=== PATIENT | female | born 1965 | race Caucasian/White ===

== ENCOUNTER 2019-01-16 10:58 | Emergency (ER) | payer OTHER ==
[2019-01-16 11:24] VITALS: BP 125/82
[2019-01-16] MEDS ORDERED: Ondansetron ODT TAB* 4 MG PO ONE (11:37)
--- NOTE | 2019-01-16 11:43 | UC ---
UC General HPI - HPI Summary HPI Summary: 53-year-old female comes in with a chief complaint of nausea vomiting chills body aches and feeling ill. Patient believes it's due to an insect bite. 3 days ago the patient felt well. She then felt something bite her on her back. 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 She was unable to look at it to determine if there was a tick. Since that time she started feeling ill with the above symptoms. Today she's been vomiting. She also feels lightheaded. She is allergic to acetaminophen. She has not taken any ibuprofen. 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 She is not allergic to ibuprofen. She reports she has not been on Xarelto for 2 months. - History of Current Complaint Chief Complaint: UCBiteInjury Stated Complaint: INSECT BITE Time Seen by Provider: 01/16/19 11:29 Pain Intensity: 7 - Allergy/Home Medications Allergies/Adverse Reactions: Allergies Allergy/AdvReac Type Severity Reaction Status Date / Time acetaminophen [From Tylenol] Allergy See Comment Verified 01/16/19 11:28 aspirin Allergy See Comment Verified 01/16/19 11:28 codeine Allergy Nausea And Verified 01/16/19 11:28 Vomiting ibuprofen [From Motrin] Allergy GI Upset Verified 01/16/19 11:28 morphine Allergy Diarrhea Verified 01/16/19 11:28 PMH/Surg Hx/FS Hx/Imm Hx Previously Healthy: Yes - LIVER CLOT Other History Of: Anticoagulant Therapy - COUMADIN - Surgical History Surgical History: Yes Surgery Procedure, Year, and Place: 1981,1983,1984 [facility], [facility], [facility] [place]. 1997 partial hysterectomy [facility] [place]. 4 DIFFERENT xS, BONE SPURS REMOVED KNEES, ANKLES [facility]. 1995 ABD LAP. [facility] [place]. 1995 LIVER BIOPSY X 2 [facility]. 2002 LIVER BIOPSY [facility]. 2016 RIGHT SHOULDER SURGERY - Family History Known Family History: Positive: Non-Contributory - Social History Alcohol Use: None Alcohol Amount: NONE IN PAST 5 YEARS, Hx OF HEAVY USE Substance Use Type: Cocaine, Prescribed Substance Use Comment - Amount & Last Used: Past use 6 months ago Smoking Status (MU): Heavy Every Day Tobacco Smoker Type: Cigarettes Amount Used/How Often: Hx OF 1PPD SINCE AGE 11, NOW 1/2 PPD Length of Time of Smoking/Using Tobacco: 38 YRS Have You Smoked in the Last Year: Yes Household Exposure Type: Cigarettes Review of Systems All Other Systems Reviewed And Are Negative: Yes Constitutional: Positive: Chills, Fatigue, Other - SEE HPI Skin: Positive: Other - SEE HPI Eyes: Positive: Negative ENT: Positive: Negative Respiratory: Positive: Negative Cardiovascular: Positive: Negative Gastrointestinal: Positive: Vomiting, Nausea, Other - SEE HPI Genitourinary: Positive: Negative Motor: Positive: Negative Neurovascular: Positive: Negative Musculoskeletal: Positive: Other: - SEE HPI Neurological: Positive: Other - SEE HPI Psychological: Positive: Negative Is Patient Immunocompromised?: No Physical Exam Triage Information Reviewed: Yes Appearance: No Pain Distress, Well-Nourished, Ill-Appearing - MILD Vital Signs: Initial Vital Signs Temp 99.4 F 01/16/19 11:19 Pulse 94 01/16/19 11:19 Resp 16 01/16/19 11:19 BP 125/82 01/16/19 11:19 Pulse Ox 99 01/16/19 11:19 Vital Signs Reviewed: Yes Eye Exam: Normal Eyes: Positive: Conjunctiva Clear ENT: Positive: Pharynx normal, TMs normal Neck: Positive: Supple Respiratory: Positive: Lungs clear, Normal breath sounds, No respiratory distress Cardiovascular: Positive: RRR Abdomen Description: Positive: Nontender, Soft. Negative: CVA Tenderness (R), CVA Tenderness (L) Musculoskeletal: Positive: Strength Intact, ROM Intact Neurological: Positive: Alert Psychological: Positive: Age Appropriate Behavior Skin: Positive: Other - 8 cm diameter area of erythema on the thoracic back just to the right of the midline. No foreign body seen. Course/Dx - Course Course Of Treatment: In clinic patient was given Zofran 4 mg ODT for her nausea. She reports being very thirsty therefore we checked a fingerstick blood sugar which was 189. Patient has no history of diabetes. At this time going to treat for Lyme disease with doxycycline 100 mg by mouth twice a day for 14 days. Also prescribed Zofran for the nausea. I discussed with the patient she needs to follow up with her primary care doctor for the elevated blood sugar. Additionally we discussed at this time with her feeling so ill that if she did not improve or she worsens at all she needs to go the emergency department for further evaluation and care. I discussed with the patient going to the emergency room now either by POV or ambulance and patient declined both options at this time. - Diagnoses Provider Diagnosis: Insect bite, Nausea & vomiting, Hyperglycemia Discharge - Sign-Out/Discharge Documenting (check all that apply): Patient Departure All imaging exams completed and their final reports reviewed: No Studies - Discharge Plan Condition: Stable Disposition: HOME Prescriptions: DOXYcycline CAP(*) [DOXYcycline 100MG CAP(*)] 100 mg PO BID #27 cap Ondansetron ODT TAB* [Zofran 4 MG Odt TAB*] 4 mg PO Q6H PRN #10 tab.odt PRN Reason: Nausea Patient Education Materials: Insect Bite or Sting (ED), Acute Nausea and Vomiting (ED), Nondiabetic Hyperglycemia (ED) Referrals: Tracy Boss DO [Primary Care Provider] - Additional Instructions: FOLLOW UP WITH YOUR DOCTOR. GO TO THE EMERGENCY DEPARTMENT IF YOUR CONDITION DOES NOT IMPROVE OR WORSENS; PAIN, FEVER, YOU FEEL ILL, CONFUSION OR ANY QUESTIONS OR CONCERNS. - Billing Disposition and Condition Condition: STABLE Disposition: Home
[2019-01-16] MEDS ORDERED: DOXYcycline CAP(*) 100 MG PO ONE (12:35)
--- OUTSIDE RECORDS SUMMARY | 2019-01-16 18:05 | XMS REPORT | Continuity of Care Document ---
:1965 External Reference #:[id number] Author Name Kwame Mell Care Team Providers Name Role Phone Other Ordering Provider Care Team Information Dish Up Person Unavailable Payers Date Identification Numbers Payment Provider Subscriber Policy Number: [id number] [employer] Imani Peña PayID: [id number] [address] [address] [place] [address] Effective: 2011 Policy Number: [employer] Imani Peña [id number] Expires: 2014 PayID: [id number] [address] [address] [place] [address] Effective: 2014 Policy Number: [id number] [place] Imani Peña Expires: 2015 Group Name: [id number] [address] PayID: [id number] [place] [address] Problems Active Problems Provider Date Cocaine abuse Miguel A Floyd M.D.,FACP Onset: 10/16/2015 Cervical spondylosis without Piotr Jerez M.D. Onset: 06/13/2013 myelopathy Migraine Carter Burton M.D. Onset: 06/05/2014 Chronic hepatitis C Carter Burton M.D. Onset: 06/05/2014 Tobacco user Carter Burton M.D. Onset: 06/05/2014 Portal vein thrombosis Miguel A Floyd M.D.,FACP Onset: 07/04/2014 Note: on anticoagulation Anticoagulant therapy Miguel A Floyd M.D.,FACP Onset: 07/04/2014 Arthralgia of the ankle and/or foot Tiburcio Kelly M.D. Onset: 10/26/2014 Closed anterior dislocation of humerus Ish Truong MD Onset: 03/26/2015 Localized, primary osteoarthritis of Ish Truong MD Onset: 05/14/2015 the shoulder region Chronic obstructive lung disease Smitha Bueno MD Onset: 08/29/2015 Disturbance in sleep behavior Smitha Bueno MD Onset: 08/29/2015 Acute exacerbation of chronic Smitha Bueno MD Onset: 03/10/2016 obstructive airways disease Fall through floor, sequela Smitha Bueno MD Onset: 03/31/2016 Gastroesophageal reflux disease Smitha Bueno MD Onset: 04/27/2016 Cough Smitha Bueno MD Onset: 04/27/2016 Obesity Smitha Bueno MD Onset: 05/13/2016 Disorder of shoulder Ish Truong MD Onset: 05/21/2016 Knee joint effusion Ish Truong MD Onset: 05/21/2016 Late effect of fracture of lower Ish Truong MD Onset: 05/21/2016 extremities Strain of rotator cuff capsule Ish Truong MD Onset: 05/21/2016 Injury of shoulder region Ish Truong MD Onset: 05/21/2016 Arthralgia of the upper arm Ish Truong MD Onset: 05/21/2016 Brachial neuritis Ish Truong MD Onset: 11/19/2017 Strain of rotator cuff capsule Ish Truong MD Onset: 09/23/2018 Inactive Problems Sprain of ankle Tiburcio Kelly M.D. Onset: 10/26/2014 Inactive: 11/02/2014 Family History Date Family Member(s) Observation Comments General Arthritis General Hypertension General Cancer General Fibromyalgia General Psychiatric/Emotional Problems sister General Asthma Mother 70 Mother Deep Venous Thrombosis (DVT) First Son Pulmonary Embolism (Pe) : (age 21 First Daughter due to Pulmonary Years) Embolism (PE) First Daughter due to turners syndrome () : (age 1 Month) Second Daughter due to complications of 2 days old childbirth Social History Type Date Description Comments Sex Unknown Marital Status Lives With Alone Occupation Disabled Tobacco Use Start: Unknown Patient is a current cigarette smoker, smokes every day ETOH Use Has consumed alcohol in quit 3 years. the past ETOH Use 11/02/2014 Has consumed alcohol in the past Tobacco Use Start: Unknown Patient is a current 1 PPD x 20 years smoker, smokes every then 8cig/day x 2-3 day years, now 0-2/day Recreational Drug Use Former Drug User Quit 3 years ago Tobacco Use Start: Unknown Light tobacco smoker (10 or fewer cigarettes/day) Tobacco Use Start: Unknown 03/31/16 smoking a couple of cigs a day Smoking Status Reviewed: 12/29/18 03/31/16 smoking a couple of cigs a day Exercise Type/Frequency Walks daily Allergies, Adverse Reactions, Alerts Active Allergies Reaction Severity Comments Date Tylenol W/Codeine 03/01/2013 Ibuprofen 03/01/2013 Morphine diarrhea 06/18/2014 Aspirin 08/29/2015 Medications Active Medications SIG Qnty Indications Ordering Provider Date No Active Medications Unknown 12/29/2018 History Medications Cyclobenzaprine HCL take 1 tab 3 30tabs S46.011A Ish 10/25/2018 - 10mg times a day as MD Alexi 12/28/2018 Tablets needed for spasms Medrol take as directed 21units S46.011A Ish 09/23/2018 - 4mg TBPK by packaging MD Alexi 10/01/2018 Methylprednisolone take as directed 21units Ish 05/28/2016 - 4mg TBPK MD Alexi 06/02/2016 Esomeprazole Sodium 1 by mouth every 90units K21.9 Smith[place] 04/27/2016 - 20mg day MD Ximena 12/28/2018 Solution Rec Nebulizer 1 unit 1units Smitha 03/31/2016 - Kit/Tubing/Mouthpiece nebulization MD Ximena 12/28/2018 Kit every 4- 6 hours as needed Prednisone 30mg daily for 1 42tabs J44.1 [place] 03/10/2016 - 10mg Tablets week, 20mg daily MD Ximena 03/30/2016 for 1 week, 10 mg daily for 1 week Azithromycin 2 tabs day#1, 1 5tabs J44.1 [place] 03/10/2016 - 250mg Tablets tab for 3 days MD Ximena 03/30/2016 Symbicort 2 puff twice a 20.4gm Smith[place] 01/06/2016 - 80-4.5mcg/Act day MD Ximena 12/28/2018 Aerosol Oxymorphone HCL ER 1 tab by mouth 60tabs M47.812 Miugel A Santillan 11/01/2015 - 15mg twice a day [place], 03/30/2016 Tablets ER 12HR M.D.,FACP Cyclobenzaprine HCL twice a day as 20tabs Ish 10/10/2015 - 10mg needed MD Alexi 05/18/2016 Tablets Fluticasone Propionate 1 spray each 16gm J32.9 Miguel A Santillan 09/26/2015 - nostril in in the [place], 12/28/2018 50mcg/Act Suspension morning M.D.,FACP Amoxicillin 2 tabs by mouth 40caps Miguel A Santillan 09/02/2015 - 500mg Capsules twice a day for [place], 09/12/2015 10 days M.D.,FACP Nicorette 1 chewed every 2 100units Miguel A Santillan 09/02/2015 - 4mg Gum hours as needed [place], 05/16/2016 M.D.,FACP Oxycodone HCL 1-2 tabs by mouth 90caps S43.014D Miguel A Santillan 07/30/2015 - 5mg Capsules q4-6 hours as [place], 12/28/2018 needed pain M.D.,FACP Nicoderm CQ apply 1 patch to 28units Z72.0 Miguel A Santillan 07/03/2015 - 14mg/24HR the skin every [place], 05/16/2016 Patches 24HR day and remove at M.D.,FACP night Amoxicillin/Clavulanate by mouth twice a 14tabs J44.1 Miguel A Santillan 2014 - Potassium day [place], 05/29/2015 875-125mg Tablets M.D.,FACP Mucinex twice a day as 20tabs J44.1 Miguel A Santillan 03/21/2015 - 600mg Tablets ER needed [place], 09/26/2015 12HR M.D.,FACP Nebulizer J44.9 Miguel A Santillan 03/18/2015 - Device [place], 12/28/2018 Bartolome,FACP Harvoni 1 by mouth every 84tabs Miguel A Santillan 03/08/2015 - 90-400mg Tablets day [place], 07/03/2015 MMariam,FACP Albuterol Sulfate Inhale The 360units J44.1 [place] 10/05/2014 - Contents Of 1 MD Ximena 12/28/2018 (2.5mg/3ML) 0.083% Vial Via Nebulizer Nebulizer Every 4 Hours as Needed Nebuliser Machine Diagnosis:COPD 1units 491.21 [place] 10/05/2014 - [place], 03/18/2015 M.D. Proventil HFA 2 puffs four 6.700gm J44.1 Miguel A Santillan 10/05/2014 - 108(90Base) times a day as [place], 10/23/2015 mcg/Act Aerosol needed M.D.,FACP Advair Diskus Not taking while 2units J44.1 [place] 10/05/2014 - [facility] 100-50mcg/Dose Aerosol inhalation twice M.D. daily Prednisone 5tabx 2days,4 30tabs 466.0 [place] 10/05/2014 - 10mg Tablets [id number] [facility], 11/02/2014 [id number],2tabx2 M.D. days,1tabxday. Zithromax Z-Bossman 2tab today and 1tabs 466.0 [place] 10/05/2014 - 250mg 1tab daily x [place], 10/12/2014 Tablets 4days M.D. Oxycodone HCL 1-2 by mouth 90tabs Zakymb 09/26/2014 - 5mg Tablets three times a day MD Alexi 08/21/2015 as needed Benadryl Allergy take 2-4 tablet 30caps 780.52 [place] 08/07/2014 - 25mg by mouth daily at MARCIA Loya 03/08/2015 Capsules at bedtime for sleep Ativan 1 by mouth every 90tabs 300.00 [place] 08/07/2014 - 1mg Tablets tid hours as MARCIA Loya 08/07/2014 needed Oxycodone HCL 1 by mouth 3 x a 90caps 721.42 Roque Aj 08/07/2014 - 5mg Capsules day as needed [employer] 09/26/2014 Trazodone HCL 1-2 every night 60tabs 300.00 Miguel A Santillan 07/04/2014 - 50mg Tablets at bedtime [place], 08/07/2014 Bartolome,PARMINDER Oxycodone HCL ER 1 by mouth every 60tabs M47.812 Miguel A Santillan 07/04/2014 - 20mg Tab 12 hours [place], 11/01/2015 ER 12H Abuse-Det Bartolome,PARMINDER Oxycodone HCL 1 by mouth three 90tabs 723.1 Miguel A Santillan 06/18/2014 - 5mg Tablets times a day as [place], 08/07/2014 needed PARMINDER Mancuso Alprazolam 1 tablet by mouth 90tabs Miguel A Santillan 06/04/2014 - 1mg Tablets 3x a day as [place], 12/28/2018 needed PARMINDER Mancuso Morphine Sulfate 1 tablet daily. 60tabs Carter 05/21/2014 - 30mg Bartolome Burton 06/18/2014 Tablets Oxycodone HCL 1 by mouth three 30tabs Carter 05/21/2014 - 5mg Tablets times a day as Bartolome Burton 05/05/2014 needed Xarelto take 1 tablet by 90tabs Miguel A Santillan 05/21/2014 - 20mg Tablets mouth every day [place], 12/28/2018 PARMINDER Mancuso Robaxin-750 1-2 q8h 40tabs Jacek Rivera 11/15/2008 - 750mg Tablets [place] Carter 08/21/2013 Fentanyl one every 3rd day 10units Unknown - 50mcg/HR [place] 08/21/2013 72HR Alprazolam 1/2-1 tablets po 40tabs Unknown - 1mg Tablets bid prn 08/21/2013 Warfarin Sodium take as directed 270tabs Unknown - 2mg Tablets 05/21/2014 Bupropion HCL ER 1 po qd 30tabs Unknown - 150mg 08/21/2013 Tablets ER 12HR Opana ER Unknown - 60mg 05/21/2014 Xanax XR Unknown - 3mg 06/04/2014 Topiramate take 1 tablet by 60tabs Miguel A Santillan - 100mg Tablets mouth two times [place], 12/28/2018 daily PARMINDER Mancuso Cough/Cold Unknown - Daytime 09/26/2015 0-87-357-325mg/10ML Liquid Oxycodone HCL 1 tab by mouth Unknown - 20mg Tablets every 12 hours 12/28/2018 Oxybutynin Chloride [place], - 5mg MD Harley 12/28/2018 Tablets Fluticasone Propionate [place], - MD Har[place] 12/28/2018 50mcg/Act Suspension Oxybutynin Chloride [place], - 5mg MD Harley 12/28/2018 Tablets Xarelto Take 1 Tablet By Unknown - 20mg Tablets Mouth Every Day 12/28/2018 Medications Administered in Office Medication SIG Qnty Indications Ordering Provider Date Triamcinolone (Kenalog) Ish Truong MD 05/14/2015 Injection Immunizations CPT Code Status Date Vaccine Lot # [id number] Given 07/03/2015 Pneumonia Vaccine [id number] Given 03/29/2015 Fluvirin Im 3Yrs And Older [id number] Given 03/29/2015 Pneumonia Vaccine [id number] Given 03/21/2015 Influenza Virus Vaccine, Quadrivalent, Split, [id number] Preservative Free [id number] Given 03/30/2014 Fluvirin Im 3Yrs And Older Vital Signs Date Vital Result Comment 12/29/2018 8:18am Height 65 inches 5'5" Weight 215.00 lb Heart Rate 80 /min Respiratory Rate 17 /min Pain Level 9 BMI (Body Mass Index) 35.8 kg/m2 11/17/2018 1:08pm Height 65 inches 5'5" Weight 230.00 lb Heart Rate 88 /min BP Systolic 118 mmHg BP Diastolic 66 mmHg Body Temperature 97.7 F Pain Level 7 BMI (Body Mass Index) 38.3 kg/m2 10/25/2018 8:27am Height 65 inches 5'5" Weight 230.00 lb Heart Rate 66 /min Body Temperature 97.5 F Pain Level 7 O2 % BldC Oximetry 97 % BMI (Body Mass Index) 38.3 kg/m2 09/23/2018 8:26am Height 65 inches 5'5" Weight 255.00 lb Heart Rate 77 /min BP Systolic 148 mmHg BP Diastolic 80 mmHg Body Temperature 97.7 F Pain Level 8 BMI (Body Mass Index) 42.4 kg/m2 02/28/2018 1:57pm Height 65 inches 5'5" Weight 236.00 lb BP Systolic Sitting 122 mmHg BP Diastolic Sitting 80 mmHg Pain Level 7 BMI (Body Mass Index) 39.3 kg/m2 12/06/2017 12:56pm Height 65 inches 5'5" Weight 236.00 lb Heart Rate 81 /min BP Systolic Sitting 128 mmHg BP Diastolic Sitting 74 mmHg Pain Level 7 BMI (Body Mass Index) 39.3 kg/m2 11/19/2017 9:28am Height 65 inches 5'5" Heart Rate 72 /min BP Systolic 132 mmHg BP Diastolic 86 mmHg Respiratory Rate 16 /min Body Temperature 98.4 F Pain Level 6 10/26/2017 9:26am Height 65 inches 5'5" Weight 236.00 lb BP Systolic 126 mmHg BP Diastolic 70 mmHg Respiratory Rate 20 /min Pain Level 8 BMI (Body Mass Index) 39.3 kg/m2 06/26/2016 10:43am Height 65 inches 5'5" Weight 236.00 lb Respiratory Rate 16 /min Pain Level 8 BMI (Body Mass Index) 39.3 kg/m2 05/21/2016 10:09am Height 65 inches 5'5" Weight 236.00 lb Respiratory Rate 16 /min Pain Level 6 BMI (Body Mass Index) 39.3 kg/m2 05/13/2016 12:06pm Height 65 inches 5'5" Weight 236.00 lb Heart Rate 86 /min BP Systolic Sitting 144 mmHg BP Diastolic Sitting 80 mmHg Respiratory Rate 16 /min O2 % BldC Oximetry 95 % BMI (Body Mass Index) 39.3 kg/m2 04/27/2016 11:26am Height 65 inches 5'5" Weight 236.00 lb Heart Rate 82 /min BP Systolic Sitting 148 mmHg BP Diastolic Sitting 94 mmHg Respiratory Rate 18 /min O2 % BldC Oximetry 97 % BMI (Body Mass Index) 39.3 kg/m2 03/31/2016 10:33am Height 65 inches 5'5" Weight 236.00 lb Heart Rate 76 /min BP Systolic Sitting 142 mmHg BP Diastolic Sitting 82 mmHg Respiratory Rate 18 /min O2 % BldC Oximetry 97 % BMI (Body Mass Index) 39.3 kg/m2 03/10/2016 10:05am Height 65 inches 5'5" Weight 236.00 lb Heart Rate 81 /min BP Systolic Sitting 136 mmHg BP Diastolic Sitting 77 mmHg Respiratory Rate 18 /min O2 % BldC Oximetry 96 % BMI (Body Mass Index) 39.3 kg/m2 11/21/2015 8:10am Height 65 inches 5'5" Weight 236.00 lb Pain Level 5 Occasional BMI (Body Mass Index) 39.3 kg/m2 10/23/2015 11:43am Height 65 inches 5'5" Weight 237.00 lb Heart Rate 88 /min BP Systolic Sitting 118 mmHg BP Diastolic Sitting 78 mmHg O2 % BldC Oximetry 97 % BMI (Body Mass Index) 39.4 kg/m2 10/10/2015 7:59am Height 65 inches 5'5" Weight 236.00 lb Heart Rate 90 /min BP Systolic 125 mmHg BP Diastolic 86 mmHg Pain Level 5 BMI (Body Mass Index) 39.3 kg/m2 09/26/2015 8:44am Height 65 inches 5'5" Weight 236.00 lb Heart Rate 85 /min BP Systolic Sitting 121 mmHg BP Diastolic Sitting 82 mmHg Body Temperature 99.1 F O2 % BldC Oximetry 98 % BMI (Body Mass Index) 39.3 kg/m2 09/05/2015 10:30am Height 65 inches 5'5" Weight 231.00 lb Pain Level 6 BMI (Body Mass Index) 38.4 kg/m2 08/29/2015 7:51am Height 65 inches 5'5" Weight 234.12 lb Heart Rate 91 /min BP Systolic Sitting 132 mmHg BP Diastolic Sitting 76 mmHg Respiratory Rate 16 /min O2 % BldC Oximetry 97 % BMI (Body Mass Index) 39.0 kg/m2 08/27/2015 8:59am Height 65 inches 5'5" Weight 231.00 lb Pain Level 7 BMI (Body Mass Index) 38.4 kg/m2 08/21/2015 10:13am Height 65 inches 5'5" Weight 231.25 lb Heart Rate 86 /min BP Systolic Sitting 123 mmHg BP Diastolic Sitting 80 mmHg Body Temperature 99.0 F O2 % BldC Oximetry 98 % BMI (Body Mass Index) 38.5 kg/m2 07/30/2015 8:14am Height 65 inches 5'5" Weight 230.00 lb Body Temperature 98.9 F BMI (Body Mass Index) 38.3 kg/m2 07/26/2015 9:45am Height 65 inches 5'5" Weight 230.00 lb BMI (Body Mass Index) 38.3 kg/m2 07/09/2015 8:41am Height 65 inches 5'5" Weight 232.00 lb Heart Rate 76 /min BP Systolic 110 mmHg BP Diastolic 75 mmHg BMI (Body Mass Index) 38.6 kg/m2 07/03/2015 12:05pm Height 65 inches 5'5" Weight 232.00 lb Heart Rate 100 /min BP Systolic Sitting 133 mmHg BP Diastolic Sitting 80 mmHg Body Temperature 98.8 F O2 % BldC Oximetry 98 % BMI (Body Mass Index) 38.6 kg/m2 05/22/2015 9:22am Height 65 inches 5'5" Weight 220.00 lb Pain Level 6 6-7 BMI (Body Mass Index) 36.6 kg/m2 05/14/2015 7:55am Height 65 inches 5'5" Weight 227.00 lb Pain Level 5 BMI (Body Mass Index) 37.8 kg/m2 03/26/2015 2:12pm Height 65 inches 5'5" Weight 227.00 lb Pain Level 7 with numbness BMI (Body Mass Index) 37.8 kg/m2 03/21/2015 3:15pm Height 65 inches 5'5" Weight 227.00 lb Heart Rate 82 /min BP Systolic Sitting 110 mmHg BP Diastolic Sitting 76 mmHg Body Temperature 98.6 F O2 % BldC Oximetry 98 % BMI (Body Mass Index) 37.8 kg/m2 03/08/2015 9:32am Height 65 inches 5'5" Weight 229.00 lb Heart Rate 78 /min BP Systolic Sitting 114 mmHg BP Diastolic Sitting 72 mmHg Body Temperature 97.1 F O2 % BldC Oximetry 98 % BMI (Body Mass Index) 38.1 kg/m2 11/02/2014 9:19am Height 65 inches 5'5" Weight 230.12 lb Heart Rate 82 /min BP Systolic Sitting 108 mmHg BP Diastolic Sitting 68 mmHg Body Temperature 98.8 F O2 % BldC Oximetry 98 % BMI (Body Mass Index) 38.3 kg/m2 10/26/2014 1:17pm Height 65 inches 5'5" Weight 219.00 lb Heart Rate 80 /min BP Systolic Recheck 130 mmHg BP Diastolic Recheck 84 mmHg Respiratory Rate 16 /min Body Temperature 98.1 F Pain Level 9 BMI (Body Mass Index) 36.4 kg/m2 10/12/2014 7:48am Height 65 inches 5'5" Weight 228.12 lb Heart Rate 67 /min BP Systolic Sitting 118 mmHg BP Diastolic Sitting 62 mmHg Body Temperature 97.9 F O2 % BldC Oximetry 97 % BMI (Body Mass Index) 38.0 kg/m2 10/05/2014 7:36am Height 65 inches 5'5" Weight 226.00 lb Heart Rate 81 /min BP Systolic Sitting 108 mmHg BP Diastolic Sitting 70 mmHg Body Temperature 97.6 F O2 % BldC Oximetry 94 % BMI (Body Mass Index) 37.6 kg/m2 09/03/2014 8:57am Height 65 inches 5'5" Weight 230.00 lb Heart Rate 74 /min BP Systolic Sitting 110 mmHg BP Diastolic Sitting 76 mmHg Pain Level 7 neck/back BMI (Body Mass Index) 38.3 kg/m2 08/07/2014 9:18am Height 65 inches 5'5" Weight 231.00 lb Heart Rate 86 /min BP Systolic Sitting 108 mmHg BP Diastolic Sitting 78 mmHg Body Temperature 98.3 F O2 % BldC Oximetry 99 % BMI (Body Mass Index) 38.4 kg/m2 07/04/2014 11:43am Weight 227.25 lb Heart Rate 69 /min BP Systolic Sitting 109 mmHg BP Diastolic Sitting 68 mmHg O2 % BldC Oximetry 98 % 06/18/2014 2:44pm Height 65 inches 5'5" Weight 9227.00 lb Heart Rate 98 /min BP Systolic Sitting 102 mmHg BP Diastolic Sitting 74 mmHg Body Temperature 97.9 F O2 % BldC Oximetry 99 % BMI (Body Mass Index) 1535.3 kg/m2 06/04/2014 3:12pm Height 65 inches 5'5" Weight 227.25 lb Heart Rate 60 /min BP Systolic Sitting 110 mmHg BP Diastolic Sitting 70 mmHg Body Temperature 98.9 F BMI (Body Mass Index) 37.8 kg/m2 05/21/2014 2:07pm Height 65 inches 5'5" Weight 227.00 lb Heart Rate 66 /min BP Systolic Sitting 94 mmHg BP Diastolic Sitting 58 mmHg Body Temperature 97.1 F BMI (Body Mass Index) 37.8 kg/m2 08/21/2013 2:43pm Height 65 inches 5'5" Weight 218.00 lb Heart Rate 65 /min BP Systolic 122 mmHg BP Diastolic 89 mmHg BMI (Body Mass Index) 36.3 kg/m2 04/03/2013 9:36am Height 65 inches 5'5" Weight 226.00 lb BP Systolic 110 mmHg BP Diastolic 64 mmHg Pain Level 6 neck BMI (Body Mass Index) 37.6 kg/m2 03/01/2013 12:59pm Height 65 inches 5'5" Weight 223.00 lb BP Systolic 108 mmHg BP Diastolic 64 mmHg Pain Level 8 Neck & Upper Back BMI (Body Mass Index) 37.1 kg/m2 Results Test Date Facility Test Result H/L Range Note Drug Abuse 10/23/2015 [facility] Urine Amphetamine Negative ng/ mL N 1 [address] [place], [place] [id number] [phone] Urine Barbiturates Negative ng/mL N 2 Urine Benzodiazepines Presumptive Posi <SEE NOTE> ng/mL N 3 Urine Cocaine Presumptive Posi <SEE NOTE> ng/mL N 4 Urine Methadone Negative ng/mL N 5 Urine Opiates Negative ng/mL N 6 Urine Phencyclidine Negative ng/mL N Cutoff: 25 Urine Tetrahydrocannabinol Negative ng/mL N Cutoff: 50 7 Urine Oxycodone Presumptive Posi <SEE NOTE> ng/mL N 8 Oxycodone,Urine 10/23/2015 [facility] Oxycodone 3335 ng/mL N [address] [place] [address] [phone] Oxymorphone 1485 ng/mL N 10 Oxycodone Interpretation Positive. N 11 Benzodiazepine 10/23/2015 [facility] Urine Negative N 12 Confirm Urine [address] Lorazepam ng/[place] [address] GC/MS [phone] Urine Nordiazepam GC/MS Negative ng/mL N 13 Urine Oxazepam GC/MS Negative ng/mL N 14 Urine Temazepam GC/MS Negative ng/mL N 15 Ur Oh Ethyl Flurazepam GC/MS Negative ng/mL N 16 Ur 7 [place] Clonazepam GC/MS Negative ng/mL N 17 Ur 7 [place] Flunitrazepam GC/MS Negative ng/mL N Cutoff: 50 Ur Alpha Oh Alprazolam GC/MS 130 ng/mL N 18 Ur Alpha Oh Triazolam GC/MS Negative ng/mL N 19 Ur Benzodiazepine Interp Positive. N 20 Urine Cocaine 10/23/2015 [facility] Urine Negative N Cutoff: [address] Cocaine ng/[place] [address] Confirm [phone] (GC/MS) Ur Benzoylecgonine Confirm 241 ng/mL N Cutoff: 50 Urine Cocaine Interpretation Positive. N 21 Drug Abuse 20 09/26/2015 [facility] Urine Amphetamine Negative ng/mL N [address] [place] [address] [phone] Urine Barbiturates Negative ng/mL N 23 Urine Benzodiazepines Presumptive Posi <SEE NOTE> ng/mL N 24 Urine Cocaine Presumptive Posi <SEE NOTE> ng/mL N 25 Urine Methadone Negative ng/mL N 26 Urine Opiates Negative ng/mL N 27 Urine Phencyclidine Negative ng/mL N Cutoff: 25 Urine Tetrahydrocannabinol Negative ng/mL N Cutoff: 50 28 Urine Oxycodone Presumptive Posi <SEE NOTE> ng/mL N 29 Urine Cocaine 09/26/2015 [facility] Urine 912 ng/mL N Cutoff: [address] [place] [address] Confirm [phone] (GC/MS) Ur Benzoylecgonine Confirm [id number] ng/mL N Cutoff: 50 Urine Cocaine Interpretation Positive. N 30 Oxycodone,Urine 09/26/2015 [facility] Oxycodone 4816 ng/mL N [address] [place] [address] [phone] Oxymorphone 529 ng/mL N 32 Oxycodone Interpretation Positive. N 33 Benzodiazepine 09/26/2015 [facility] Urine Negative N 34 Confirm Urine [address] Lorazepam ng/[place] [address] GC/MS [phone] Urine Nordiazepam GC/MS Negative ng/mL N 35 Urine Oxazepam GC/MS Negative ng/mL N 36 Urine Temazepam GC/MS Negative ng/mL N 37 Ur Oh Ethyl Flurazepam GC/MS Negative ng/mL N 38 Ur 7 [place] Clonazepam GC/MS Negative ng/mL N 39 Ur 7 [place] Flunitrazepam GC/MS Negative ng/mL N Cutoff: 50 Ur Alpha Oh Alprazolam GC/MS 347 ng/mL N 40 Ur Alpha Oh Triazolam GC/MS Negative ng/mL N 41 Ur Benzodiazepine Interp Positive. N 42 CBC Auto Diff 08/27/2015 [facility] White Blood 8.8 10^3/uL N 3.5-10.[address] [place] [address] [phone] Red Blood Count 4.61 10^6/uL N 4.0-5.4 Hemoglobin 14.7 g/dL N 12.0-16.0 Hematocrit 45 % N 35-47 Mean Corpuscular Volume 97 fL N 80-97 Mean Corpuscular Hemoglobin 32 pg High 27-31 Mean Corpuscular HGB Conc 33 g/dL N 31-36 Red Cell Distribution Width 14 % N 10.5-15 Platelet Count 237 10^3/uL N 150-450 Mean Platelet Volume 8 um3 N 7.4-10.4 Abs Neutrophils 5.1 10^3/uL N 1.5-7.7 Abs Lymphocytes 2.4 10^3/uL N 1.0-4.8 Abs Monocytes 0.3 10^3/uL N 0-0.8 Abs Eosinophils 0.6 10^3/uL N 0-0.6 Abs Basophils 0.3 10^3/uL High 0-0.2 Abs Nucleated RBC 0.01 10^3/uL N Granulocyte % 58.4 % N 38-83 Lymphocyte % 27.5 % N 25-47 Monocyte % 3.9 % N 1-9 Eosinophil % 6.6 % High 0-6 Basophil % 3.6 % High 0-2 Nucleated Red Blood Cells % 0.1 N Laboratory test 08/27/2015 [facility] Erythrocyte Sed 32 mm/Hr High 0-[address] [place] [address] [phone] C Reactive Protein 5.65 mg/L High < 5.00 43 Laboratory test 06/11/2015 [facility] Alpha 1 99 mg/dL Abnormal 100 - [address] Antitrypsin 190 [place] [address] A1a [phone] Benzodiazepine 03/08/2015 [facility] Urine Negative N 45 Confirm Urine [address] Lorazepam ng/[place] [address] GC/MS [phone] Urine Nordiazepam GC/MS Negative ng/mL N 46 Urine Oxazepam GC/MS Negative ng/mL N 47 Urine Temazepam GC/MS Negative ng/mL N 48 Ur Oh Ethyl Flurazepam GC/MS Negative ng/mL N 49 Ur 7 [place] Clonazepam GC/MS Negative ng/mL N 50 Ur 7 [place] Flunitrazepam GC/MS Negative ng/mL N Cutoff: 50 Ur Alpha Oh Alprazolam GC/MS 322 ng/mL N 51 Ur Alpha Oh Triazolam GC/MS Negative ng/mL N 52 Ur Benzodiazepine Interp Positive. N 53 Drug Abuse 20 03/08/2015 [facility] Urine Amphetamine Negative ng/mL N [address] [place], [place] [id number] [phone] Urine Barbiturates Negative ng/mL N 55 Urine Benzodiazepines Presumptive Posi <SEE NOTE> ng/mL N 56 Urine Cocaine Negative ng/mL N 57 Urine Methadone Negative ng/mL N 58 Urine Opiates Negative ng/mL N 59 Urine Phencyclidine Negative ng/mL N Cutoff: 25 Urine Tetrahydrocannabinol Negative ng/mL N Cutoff: 20 60 Urine Oxycodone Presumptive Posi <SEE NOTE> ng/mL N 61 Oxycodone,Urine 03/08/2015 [facility] Oxycodone 116 ng/mL N [address] [place], [place] [id number] [phone] Oxymorphone 888 ng/mL N 63 Oxycodone Interpretation Positive. N 64 Laboratory test 03/01/2015 [facility] Glucose 94 mg/dL N 70- [address] [place], [place] [id number] [phone] Lipid Profile 03/01/2015 [facility] Triglycerides 101 mg/dL N 65 (Trig/Chol/HDL) [address] [place], [place] [id number] [phone] Cholesterol 198 mg/dL N 66 HDL Cholesterol 59.2 mg/dL N 67 LDL Cholesterol 119 mg/dL N 68 Urinalysis Profile 05/25/2014 [facility] [facility] Urine Color Straw N [address] [place] [address] [phone] Urine Appearance Clear N Urine Specific Cardinal 1.003 Low 1.010-1.030 Urine pH 6.0 N 5-9 Urine Urobilinogen Negative N Negative Urine Ketones Negative N Negative Urine Protein Negative N Negative Urine Leukocytes Negative N Negative Urine Blood 1+ Abnormal Negative Urine Nitrite Negative N Negative Urine Bilirubin Negative N Negative Urine Glucose Negative N Negative Urine White Blood Cell Trace(0-5/hpf) N Absent Urine Red Blood Cell Trace N Absent Urine Bacteria Absent N Absent Urine Squamous Epithelial Cell Present Abnormal Absent Laboratory test 05/25/2014 [facility] TSH (Thyroid 0.55 N 0.34 -5.60 [address] Stimulating Horm) IU/[place] [address] [phone] Lipid Profile 05/25/2014 [facility] Triglycerides 103 mg/dL N 71 (Trig/Chol/HDL) [address] [place] [address] [phone] Cholesterol 158 mg/dL N 72 HDL Cholesterol 47.2 mg/dL N 73 LDL Cholesterol 90 mg/dL N 74 Comp Metabolic Panel 05/25/2014 [facility] Sodium 138 mmol/L N 133-[address] [place] [address] [phone] Potassium 3.9 mmol/L N 3.5-5.0 Chloride 106 mmol/L N 101-111 Co2 Carbon Dioxide 28 mmol/L N 22-32 Anion Gap 4 mmol/L N 2-11 Glucose 98 mg/dL N 70-100 Blood Urea Nitrogen 12 mg/dL N 6-24 Creatinine 0.90 mg/dL N 0.51-0.95 BUN/Creatinine Ratio 13.3 N 8-20 Calcium 9.6 mg/dL N 8.6-10.3 Total Protein 7.6 g/dL N 6.4-8.9 Albumin 4.2 g/dL N 3.2-5.2 Globulin 3.4 g/dL N 2-4 Albumin/Globulin Ratio 1.2 N 1-3 Total Bilirubin 0.40 mg/dL N 0.2-1.0 Alkaline Phosphatase 62 U/L N 34-104 Alt 55 U/L High 7-52 Ast 41 U/L High 13-39 Egfr Non- 66.5 N >60 Egfr 85.6 N >60 75 CBC Auto Diff 05/25/2014 [facility] White Blood 6.5 10^3/uL N 4.8-10.[address] [place] [address] [phone] Red Blood Count 4.54 10^6/uL N 4.0-5.4 Hemoglobin 14.5 g/dL N 12.0-16.0 Hematocrit 43 % N 35-47 Mean Corpuscular Volume 94 fL N 80-97 Mean Corpuscular Hemoglobin 32 pg High 27-31 Mean Corpuscular HGB Conc 34 g/dL N 31-36 Red Cell Distribution Width 13 % N 10.5-15 Platelet Count 198 10^3/uL N 150-450 Mean Platelet Volume 8 um3 N 7.4-10.4 Abs Neutrophils 3.5 10^3/uL N 1.5-7.7 Abs Lymphocytes 2.4 10^3/uL N 1.0-4.8 Abs Monocytes 0.4 10^3/uL N 0-0.8 Abs Eosinophils 0.1 10^3/uL N 0-0.6 Abs Basophils 0 10^3/uL N 0-0.2 Abs Nucleated RBC 0.01 10^3/uL N Granulocyte % 54.2 % N 38-83 Lymphocyte % 37.0 % N 25-47 Monocyte % 6.4 % N 1-9 Eosinophil % 1.9 % N 0-6 Basophil % 0.5 % N 0-2 Nucleated Red Blood Cells % 0.1 N Confirm 05/21/2014 [facility] Urine Codeine Negative ng/mL N [address] Confirmation (GC/MS) [place] [address] [phone] Urine Hydrocodone Confirm Negative ng/mL N 77 Urine Hydromorphone Confirm Negative ng/mL N 78 Urine Morphine Confirm 446 ng/mL N 79 Urine Oxymorphone Confirm 1500 ng/mL N 80 Urine Oxycodone Confirm 2100 ng/mL N 81 Urine Opiates Interpretation See Comment N 82 Benzodiazepine 05/21/2014 [facility] Urine Negative N 83 Confirm Urine [address] Lorazepam ng/[place] [address] GC/MS [phone] Urine Nordiazepam GC/MS Negative ng/mL N 84 Urine Oxazepam GC/MS Negative ng/mL N 85 Urine Temazepam GC/MS Negative ng/mL N 86 Ur Oh Ethyl Flurazepam GC/MS Negative ng/mL N 87 Ur 7 [place] Clonazepam GC/MS Negative ng/mL N 88 Ur 7 [place] Flunitrazepam GC/MS Negative ng/mL N Cutoff: 50 Ur Alpha Oh Alprazolam GC/MS 135 ng/mL N 89 Ur Alpha Oh Triazolam GC/MS Negative ng/mL N 90 Ur Benzodiazepine Interp Positive. N 91 Drug Abuse 20 05/21/2014 [facility] Urine Amphetamine Negative ng/mL N [address] [place] [address] [phone] Urine Barbiturates Negative ng/mL N 93 Urine Benzodiazepines Presumptive Posi <SEE NOTE> ng/mL N 94 Urine Cocaine Negative ng/mL N 95 Urine Methadone Negative ng/mL N 96 Urine Opiates Presumptive Posi <SEE NOTE> ng/mL N 97 Urine Phencyclidine Negative ng/mL N Cutoff: 25 Urine Tetrahydrocannabinol Negative ng/mL N Cutoff: 20 98 Urine Oxycodone Presumptive Posi <SEE NOTE> ng/mL N 99 Urine Amphetamine Negative ng/mL N 100 Urine Barbiturates Negative ng/mL N 101 Urine Benzodiazepines Presumptive Posi <SEE NOTE> ng/mL N 102 Urine Cocaine Negative ng/mL N 103 Urine Methadone Negative ng/mL N 104 Urine Opiates Presumptive Posi <SEE NOTE> ng/mL N 105 Urine Phencyclidine Negative ng/mL N Cutoff: 25 Urine Tetrahydrocannabinol Negative ng/mL N Cutoff: 20 106 Urine Oxycodone Presumptive Posi <SEE NOTE> ng/mL N 107 1 REFERENCE VALUE Cutoff: 500 2 REFERENCE VALUE Cutoff: 200 3 Presumptive Positive Drug confirmation to follow. Presumptive Positive means that the screening method is positive, but the test needs to be run by a confirmatory method before being finalized. REFERENCE VALUE Cutoff: 100 4 Presumptive Positive Drug confirmation to follow. Presumptive Positive means that the screening method is positive, but the test needs to be run by a confirmatory method before being finalized. REFERENCE VALUE Cutoff: 150 5 REFERENCE VALUE Cutoff: 300 6 REFERENCE VALUE Cutoff: 300 7 ADDITIONAL INFORMATION This report is intended for use in clinical monitoring or management of patients. It is not intended for use in employment-related testing. 8 Presumptive Positive Drug confirmation to follow. Presumptive Positive means that the screening method is positive, but the test needs to be run by a confirmatory method before being finalized. REFERENCE VALUE Cutoff: 100 ADDITIONAL INFORMATION This report is intended for use in clinical monitoring or management of patients. It is not intended for use in employment-related testing. Test Performed by: [facility] [employer] - [address] [address] Family Engagement Specialist: Cesar Low II, M.D., Ph.D. 9 REFERENCE VALUE Cutoff: 100 10 REFERENCE VALUE Cutoff: 100 11 ADDITIONAL INFORMATION This report is intended for use in clinical monitoring and management of patients. It is not intended for use in employment-related testing. Test Performed by: [facility] - [facility] [address] [place] [address] Family Engagement Specialist: Cesar Low II, M.D., Ph.D. 12 REFERENCE VALUE Cutoff: 100 13 REFERENCE VALUE Cutoff: 100 14 REFERENCE VALUE Cutoff: 100 15 REFERENCE VALUE Cutoff: 100 16 REFERENCE VALUE Cutoff: 100 17 REFERENCE VALUE Cutoff: 100 18 REFERENCE VALUE Cutoff: 100 19 REFERENCE VALUE Cutoff: 100 20 ADDITIONAL INFORMATION This report is intended for use in clinical monitoring and management of patients. It is not intended for use in employment-related testing. Test Performed by: [facility] [place] [address] Family Engagement Specialist: Cesar Low II, M.D., Ph.D. 21 ADDITIONAL INFORMATION This report is intended for use in clinical monitoring and management of patients. It is not intended for use in employment-related testing. Test Performed by: [facility] [place] [address] Family Engagement Specialist: Cesar Low II, M.D., Ph.D. 22 REFERENCE VALUE Cutoff: 500 23 REFERENCE VALUE Cutoff: 200 24 Presumptive Positive Drug confirmation to follow. Presumptive Positive means that the screening method is positive, but the test needs to be run by a confirmatory method before being finalized. REFERENCE VALUE Cutoff: 100 25 Presumptive Positive Drug confirmation to follow. Presumptive Positive means that the screening method is positive, but the test needs to be run by a confirmatory method before being finalized. REFERENCE VALUE Cutoff: 150 26 REFERENCE VALUE Cutoff: 300 27 REFERENCE VALUE Cutoff: 300 28 ADDITIONAL INFORMATION This report is intended for use in clinical monitoring or management of patients. It is not intended for use in employment-related testing. 29 Presumptive Positive Drug confirmation to follow. Presumptive Positive means that the screening method is positive, but the test needs to be run by a confirmatory method before being finalized. REFERENCE VALUE Cutoff: 100 ADDITIONAL INFORMATION This report is intended for use in clinical monitoring or management of patients. It is not intended for use in employment-related testing. Test Performed by: [facility] - [address] [address] Family Engagement Specialist: Cesar Low II, M.D., Ph.D. 30 ADDITIONAL INFORMATION This report is intended for use in clinical monitoring and management of patients. It is not intended for use in employment-related testing. Test Performed by: [facility] - [address] [address] Family Engagement Specialist: Cesar Low II, M.D., Ph.D. 31 REFERENCE VALUE Cutoff: 100 32 REFERENCE VALUE Cutoff: 100 33 ADDITIONAL INFORMATION This report is intended for use in clinical monitoring and management of patients. It is not intended for use in employment-related testing. Test Performed by: [facility] - [address] [address] Family Engagement Specialist: Cesar Low II, M.D., Ph.D. 34 REFERENCE VALUE Cutoff: 100 35 REFERENCE VALUE Cutoff: 100 36 REFERENCE VALUE Cutoff: 100 37 REFERENCE VALUE Cutoff: 100 38 REFERENCE VALUE Cutoff: 100 39 REFERENCE VALUE Cutoff: 100 40 REFERENCE VALUE Cutoff: 100 41 REFERENCE VALUE Cutoff: 100 42 ADDITIONAL INFORMATION This report is intended for use in clinical monitoring and management of patients. It is not intended for use in employment-related testing. Test Performed by: [place] [address] Family Engagement Specialist: Cesar Low II, M.D., Ph.D. 43 Acute inflammation: >10.00 44 Test Performed by: [place] [address] Family Engagement Specialist: Cesar Low II, M.D., Ph.D. 45 REFERENCE VALUE Cutoff: 100 46 REFERENCE VALUE Cutoff: 100 47 REFERENCE VALUE Cutoff: 100 48 REFERENCE VALUE Cutoff: 100 49 REFERENCE VALUE Cutoff: 100 50 REFERENCE VALUE Cutoff: 100 51 REFERENCE VALUE Cutoff: 100 52 REFERENCE VALUE Cutoff: 100 53 ADDITIONAL INFORMATION This report is intended for use in clinical monitoring and management of patients. It is not intended for use in employment-related testing. Test Performed by: [address] [address] Family Engagement Specialist: Cesar Low II, M.D., Ph.D. 54 REFERENCE VALUE Cutoff: 500 55 REFERENCE VALUE Cutoff: 200 56 Presumptive Positive Drug confirmation to follow. Presumptive Positive means that the screening method is positive, but the test needs to be run by a confirmatory method before being finalized. REFERENCE VALUE Cutoff: 200 57 REFERENCE VALUE Cutoff: 150 58 REFERENCE VALUE Cutoff: 150 59 REFERENCE VALUE Cutoff: 300 60 ADDITIONAL INFORMATION This report is intended for use in clinical monitoring or management of patients. It is not intended for use in employment-related testing. 61 Presumptive Positive Drug confirmation to follow. Presumptive Positive means that the screening method is positive, but the test needs to be run by a confirmatory method before being finalized. REFERENCE VALUE Cutoff: 100 ADDITIONAL INFORMATION This report is intended for use in clinical monitoring or management of patients. It is not intended for use in employment-related testing. Test Performed by: [facility] - [address] [address] Family Engagement Specialist: Cesar Low II, M.D., Ph.D. 62 REFERENCE VALUE Cutoff: 100 63 REFERENCE VALUE Cutoff: 100 64 ADDITIONAL INFORMATION This report is intended for use in clinical monitoring and management of patients. It is not intended for use in employment-related testing. Test Performed by: [facility] - [address] [address] Family Engagement Specialist: Cesar Low II, M.D., Ph.D. 65 Desirable <150 Borderline high 150-199 High 200-499 Very High >500 66 Desirable <200 Borderline high 200-239 High >239 67 Low <40 Desirable: 40-60 High: >60 68 Desirable: <100 mg/dL Near Optimal: 100-129 mg/dL Borderline High: 130-159 mg/dL High: 160-189 mg/dL Very High: >189 mg/dL 69 FASTING 70 FASTING 71 Desirable <150 Borderline high 150-199 High 200-499 Very High >500 72 Desirable <200 Borderline high 200-239 High >239 73 Low <40 Desirable: 40-60 High: >60 74 Desirable <100 Near Optimal 100-129 Borderline high 130-159 High 160-189 Very High >189 75 Because ethnic data is not always readily available, this report includes an eGFR for both -Americans and non- Americans. The National Kidney Disease Education Program (NKDEP) does not endorse the use of the MDRD equation for patients that are not between the ages of 18 and 70, are , have extremes of body size, muscle mass, or nutritional status, or are non- or non-. According to the National Kidney Foundation, irrespective of diagnosis, the stage of the disease is based on the level of kidney function: Stage Description GFR(mL/min/1.73 m(2)) 1 Kidney damage with normal or decreased GFR 90 2 Kidney damage with mild decrease in GFR 60-89 3 Moderate decrease in GFR 30-59 4 Severe decrease in GFR 15-29 5 Kidney failure <15 (or dialysis) 76 REFERENCE VALUE Cutoff: 100 77 REFERENCE VALUE Cutoff: 100 78 REFERENCE VALUE Cutoff: 100 79 REFERENCE VALUE Cutoff: 100 80 REFERENCE VALUE Cutoff: 100 81 REFERENCE VALUE Cutoff: 100 82 Positive. Presence of morphine at low concentration (< 2000 ng/mL) may be due to poppy seed ingestion. ADDITIONAL INFORMATION This report is intended for use in clinical monitoring and management of patients. It is not intended for use in employment-related testing. Test Performed by: [facility] - [address] [address] Family Engagement Specialist: Joselito Abarca M.D. 83 REFERENCE VALUE Cutoff: 100 84 REFERENCE VALUE Cutoff: 100 85 REFERENCE VALUE Cutoff: 100 86 REFERENCE VALUE Cutoff: 100 87 REFERENCE VALUE Cutoff: 100 88 REFERENCE VALUE Cutoff: 100 89 REFERENCE VALUE Cutoff: 100 90 REFERENCE VALUE Cutoff: 100 91 ADDITIONAL INFORMATION This report is intended for use in clinical monitoring and management of patients. It is not intended for use in employment-related testing. Test Performed by: [facility] - [address] [address] Family Engagement Specialist: Joselito Abarca M.D. 92 REFERENCE VALUE Cutoff: 500 93 REFERENCE VALUE Cutoff: 200 94 Presumptive Positive Drug confirmation to follow. Presumptive Positive means that the screening method is positive, but the test needs to be run by a confirmatory method before being finalized. REFERENCE VALUE Cutoff: 200 95 REFERENCE VALUE Cutoff: 150 96 REFERENCE VALUE Cutoff: 150 97 Presumptive Positive Drug confirmation to follow. Presumptive Positive means that the screening method is positive, but the test needs to be run by a confirmatory method before being finalized. REFERENCE VALUE Cutoff: 300 98 ADDITIONAL INFORMATION This report is intended for use in clinical monitoring or management of patients. It is not intended for use in employment-related testing. 99 Presumptive Positive Drug confirmation to follow. Presumptive Positive means that the screening method is positive, but the test needs to be run by a confirmatory method before being finalized. REFERENCE VALUE Cutoff: 100 ADDITIONAL INFORMATION This report is intended for use in clinical monitoring or management of patients. It is not intended for use in employment-related testing. Test Performed by: [facility] - [address] [address] Family Engagement Specialist: Joselito Abarca M.D. 100 REFERENCE VALUE Cutoff: 500 101 REFERENCE VALUE Cutoff: 200 102 Presumptive Positive Drug confirmation to follow. Presumptive Positive means that the screening method is positive, but the test needs to be run by a confirmatory method before being finalized. REFERENCE VALUE Cutoff: 200 103 REFERENCE VALUE Cutoff: 150 104 REFERENCE VALUE Cutoff: 150 105 Presumptive Positive Drug confirmation to follow. Presumptive Positive means that the screening method is positive, but the test needs to be run by a confirmatory method before being finalized. REFERENCE VALUE Cutoff: 300 106 ADDITIONAL INFORMATION This report is intended for use in clinical monitoring or management of patients. It is not intended for use in employment-related testing. 107 Presumptive Positive Drug confirmation to follow. Presumptive Positive means that the screening method is positive, but the test needs to be run by a confirmatory method before being finalized. REFERENCE VALUE Cutoff: 100 ADDITIONAL INFORMATION This report is intended for use in clinical monitoring or management of patients. It is not intended for use in employment-related testing. Test Performed by: [facility] - [address] [address] Family Engagement Specialist: Joselito Abarca M.D. Procedures Date Code Description Status 07/17/2015 49220 Arthroscopy,Shoulder Decompression Of Subacromial Space Completed W/Acromio 07/17/2015 66461 Arthroscopy,Shoulder,Distal Claviculectomy Incl Dist Completed Articular SR 07/17/2015 41988 Arthroscopy,Shoulder,Distal Claviculectomy Incl Dist Completed Articular SR 07/17/2015 96028 Arthroscopy,Shoulder,Surg,Capsulorrhaphy Completed 05/14/2015 42174 Inject/Drain Joint/Bursa Intermediate W/O US Completed 11/23/2014 [id number] Mammogram Completed 11/09/2014 22200 Plethysmography Determination Lung Volumes & Per Airway Completed Resist 11/09/2014 56095 Pulmonary Function><Bronchodil Completed 10/16/2013 [id number] Mammogram Completed 10/11/2013 [id number] Colonoscopy Completed 11/16/2012 05309 Rad Exam; Ankle Comp Completed 01/25/2009 [id number] Colonoscopy Completed Encounters Type Date Location Provider Dx Diagnosis Office Visit 11/17/2018 Orthopedic Ish Truong MD S46.011D Strain of 1:15p Services Of Indra hernandez/tend the rotator cuff of right shoulder, subs Office Visit 10/25/2018 Keyonna Truong MD S46.011A Strain of 8:30a Services Of Indra hernandez/tend the rotator cuff of right shoulder, init M47.812 Spondylosis w/o myelopathy or radiculopathy, cervical region M54.12 Radiculopathy, cervical region Office Visit 09/23/2018 8:00a Orthopedic Ish Truong, S46.011A Strain of Services Of MD hernandez/tend the C.M.A. rotator cuff of right shoulder, init Office Visit 02/28/2018 2:00p Spine Navigator Judie Bryan, M47.812 Spondylosis w/o Of [employer] PA-C myelopathy or radiculopathy, cervical region Office Visit 12/06/2017 1:00p Spine Navigator Judie Escobartz, M54.12 Radiculopathy, Of [employer] PA-C cervical region M54.5 Low back pain M47.812 Spondylosis w/o myelopathy or radiculopathy, cervical region Office Visit 11/19/2017 9:15a Orthopedic Ish Truong, S46.011A Strain of Services Of MD hernandez/tend the C.M.A. rotator cuff of right shoulder, init M75.41 Impingement syndrome of right shoulder M54.12 Radiculopathy, cervical region Office Visit 10/26/2017 8:45a Orthopedic Ish Truong, M25.511 Pain in right Services Of MD shoulder C.M.A. S46.011A Strain of david/tend the rotator cuff of right shoulder, init Office Visit 06/26/2016 10:30a Orthopedic Ish Truong M75.41 Impingement Services Of syndrome of right C.M.A. shoulder S46.102A Unsp injury of musc/fasc/tend long hd bicep, left arm, init S46.012A Strain of david/tend the rotator cuff of left shoulder, init Office Visit 05/21/2016 10:30a Orthopedic Ish Truong M75.41 Impingement Services Of syndrome of right C.M.A. shoulder S43.014D Anterior dislocation of right humerus, subsequent encounter M25.461 Effusion, right knee S82.001S Unspecified fracture of right patella, sequela S46.012A Strain of david/tend the rotator cuff of left shoulder, init S46.102A Unsp injury of musc/fasc/tend long hd bicep, left arm, init M25.522 Pain in left elbow Office Visit 05/13/2016 12:00p Pulmonology And [place] J44.9 Chronic Sleep Services Of MD Ximena obstructive [employer] pulmonary disease, unspecified F17.210 Nicotine dependence, cigarettes, uncomplicated G47.9 Sleep disorder, unspecified E66.09 Other obesity due to excess calories Office Visit 04/27/2016 11:30a Pulmonology And [place] J44.1 Chronic Sleep Services Of MD Ximena obstructive [employer] pulmonary disease w (acute) exacerbation F17.210 Nicotine dependence, cigarettes, uncomplicated K21.9 Gastro-esophageal reflux disease without esophagitis R05 Cough G47.9 Sleep disorder, unspecified Office Visit 03/31/2016 9:45a Pulmonology And [place] J44.1 Chronic Sleep Services Of MD Ximena obstructive [facility] pulmonary disease w (acute) exacerbation F17.210 Nicotine dependence, cigarettes, uncomplicated G47.9 Sleep disorder, unspecified W13.3xxS Fall through floor, sequela Office Visit 03/10/2016 10:00a Pulmonology And [place] J44.1 Chronic Sleep Services Of MD Ximena obstructive [employer] pulmonary disease w (acute) exacerbation F17.210 Nicotine dependence, cigarettes, uncomplicated G47.9 Sleep disorder, unspecified Office Visit 11/21/2015 8:30a Orthopedic Ish Truong M75.41 Impingement Services Of syndrome of right C.M.A. shoulder S43.014D Anterior dislocation of right humerus, subsequent encounter Office Visit 10/23/2015 11:30a [facility] Miguel A Santillan F14.10 Cocaine abuse, Tamra Floyd M.D.,FACP uncomplicated Suite R G89.4 Chronic pain syndrome H53.8 Other visual disturbances Office Visit 09/26/2015 8:50a [facility] Miguel A Santillan M75.41 Impingement Tamra Floyd M.D.,FACP syndrome of right Suite R shoulder J32.9 Chronic sinusitis, unspecified Office Visit 08/29/2015 8:00a Pulmonology And [place] J44.9 Chronic Sleep Services Of MD Ximena obstructive [employer] pulmonary disease, unspecified F17.210 Nicotine dependence, cigarettes, uncomplicated G47.9 Sleep disorder, unspecified Office Visit 08/21/2015 10:30a [facility] Internal Miguel A Santillan J44.9 Chronic Tamra Floyd M.D.,FACP obstructive Suite R pulmonary disease, unspecified S43.014D Anterior dislocation of right humerus, subsequent encounter Office Visit 07/03/2015 [facility] Sam Santillan Z01.810 Encounter for 11:50a Tamra Floyd M.D.,[facility] preprocedural Suite R cardiovascular examination S43.014D Anterior dislocation of right humerus, subsequent encounter J44.9 Chronic obstructive pulmonary disease, unspecified Z72.0 Tobacco use B19.20 Unspecified viral hepatitis C without hepatic coma Z23 Encounter for immunization Office Visit 05/22/2015 9:45a Orthopedic Ish Truong, S43.014A Anterior Services Of MD dislocation of C.M.A. right humerus, initial encounter M19.011 Primary osteoarthritis, right shoulder Office Visit 05/14/2015 8:00a Orthopedic Ish Truong, S43.014A Anterior Services Of MD dislocation of C.M.A. right humerus, initial encounter M19.011 Primary osteoarthritis, right shoulder S46.011A Strain of musc/tend the rotator cuff of right shoulder, init S43.014D Anterior dislocation of right humerus, subsequent encounter Office Visit 03/26/2015 Orthopedic Ish Truong, S43.014A Anterior 2:00p Services Of MD dislocation of C.M.A. right humerus, initial encounter Office Visit 03/21/2015 [facility] Sam Santillan J44.1 Chronic 3:40p Medicine - darien Jarvis M.D.,FACP pulmonary disease w (acute) exacerbation M47.16 Other spondylosis with myelopathy, lumbar region H53.8 Other visual disturbances Z23 Encounter for immunization Office Visit 03/08/2015 10:00a [facility] Sam Santillan Z00.8 Encounter for Tamra Floyd M.D.,[facility] other general Suite R examination J44.9 Chronic obstructive pulmonary disease, unspecified M47.812 Spondylosis w/o myelopathy or radiculopathy, cervical region M47.16 Other spondylosis with myelopathy, lumbar region B19.20 Unspecified viral hepatitis C without hepatic coma I81 Portal vein thrombosis F17.200 Nicotine dependence, unspecified, uncomplicated Office Visit 11/02/2014 9:20a [facility] Sam PangPaul D. 721.0 Spondylosis Tamra Floyd M.D.,FACP Cervical W/O Suite R Myelopathy V76.19 Screening Breast Exam Malignant Neoplasms Other V76.51 Special Screening For Malignant Neoplasms Colon 491.20 Bronchitis Obstructive Chronic W/O Acute Exacerbation Office Visit 10/26/2014 1:45p Orthopedic Services Tiburcio Byrnes 719.47 Pain Joint Of [facility] AT Jesus Kelly M.D. Ankle & Foot 845.09 Sprains & Strains Ankle Other Office Visit 10/12/2014 8:00a [facility] Internal Marty 491.21 Bronchitis Tamra Ruth M.D. Obstructive Suite R Chronic W/Acute Exacerbation Office Visit 10/05/2014 8:00a [facility] Internal Marty 466.0 Bronchitis Acute Medicine Nancy Ruth M.D. [address] 491.21 Bronchitis Obstructive Chronic W/Acute Exacerbation Office Visit 09/03/2014 Neurosurgery Piotr Jerez, 721.0 Spondylosis 9:30a Services Of Malinda [facility]anc[facility] Cervical W/O Myelopathy Office Visit 08/07/2014 [facility] Internal Reilly Loya, 300.00 Anxiety State 9:30a Medicine - [address] [employer]IVER FLATBED Unspec 780.52 Insomnia Unspecified 721.42 Spondylosis Lumbar W/ Myelopathy Office Visit 07/04/2014 11:50a [facility] Internal Miguel A Santillan 721.0 Spondylosis Tamra Floyd M.D.,FACP Cervical W/O Ccmob Myelopathy 452 Thrombosis Portal Vein 070.70 Hepatitis C W/O Hepatic Coma NOS 300.00 Anxiety State Unspec Office Visit 06/18/2014 2:00p [facility] Internal Carter Burton, 346.90 Migraine Unspec Tamra - Bartolome W/O Intractable Ccmob W/O Status Migrainosus 300.00 Anxiety State Unspec 723.1 Cervicalgia 724.5 Backache Unspec 070.70 Hepatitis C W/O Hepatic Coma NOS 452 Thrombosis Portal Vein V58.61 Anticoagulants Mill Tender Warm Up (Current) Use Encounter 305.1 Tobacco Use Disorder 995.89 Adverse Effect Other Spec Not Elsewhere Class 789.00 Pain Abdominal Unspec Site 787.01 Nausea W/ Vomiting E935.2 Opiates Related Narcotics Adverse Effects Office Visit 06/04/2014 2:40p [facility] Internal Carter Burton, 346.90 Migraine Unspec Medicine - M.D. 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 Cervical W/O Myelopathy Office Visit 11/16/2012 8:45a [facility] Rafael Fountain 844.1 Sprains & Strains Of MeliMHakeem Mancuso Knee Medial Collateral Ligament 845.00 Sprains & Strains Ankle Unspec Site Office Visit 11/15/2008 9:00a Neurosurgery Jacek Rivera 847.2 Sprains & Services [facility] Bartolome Carter Strains Lumbar Plan of Treatment Future Appointment(s):02/09/2019 8:15 am - Ish Truong MD at [facility]01/05/2019 9:00 am - Tracy Boss DO at [facility] Internal Medicine - [address]/29/2018 - Ish Truong, [id number] Strain of muscle(s) and tendon(s) of the rotator cuff of rigFollow up:Follow up: make appt with vianey make appt with polly /Yunif/u 6 weeks
== END 2019-01-16 12:49 | disposition home or self-care (01) ==
LOC: UCEAST 10:58
DX: R11.2 Nausea with vomiting, unspecified (principal); R73.9 Hyperglycemia, unspecified; S30.860A Insect bite (nonvenomous) of lower back and pelvis, initial encounter; T45.516A Underdosing of anticoagulants, initial encounter; W57.XXXA Bitten or stung by nonvenomous insect and other nonvenomous arthropods, initial encounter; Y92.9 Unspecified place or not applicable; F17.210 Nicotine dependence, cigarettes, uncomplicated; Z88.5 Allergy status to narcotic agent
CPT/HCPCS: 99212; A9270-GY; G0463

== ENCOUNTER 2019-03-13 10:05 | Day surgery (SDC) | payer OTHER ==
[~2019-03-13 10:05] MED LIST: Buffered Lidocaine 1% SYRIN* 1 ML/SYRINGE INTRADERM ONE
[2019-03-13] MEDS ORDERED: Cyclopentolate 1% OPTH.SOL* 2 ML BTL ONE (10:54)
[2019-03-13] MEDS ORDERED: acetaZOLAMIDE TAB* 250 MG ONE (10:54)
[2019-03-13] MEDS ORDERED: Ketorolac 0.5% OPHTH (NF) 0.5 % 5 ML BTL ONE (10:54)
[2019-03-13] MEDS ORDERED: Povidone Iodine 5% OPTH* 30 ML BTL ONE (10:54)
[2019-03-13] MEDS ORDERED: Tropicamide 1% OPTH.SOL* BTL ONE (10:54)
[2019-03-13] MEDS ORDERED: Neomycin/Polymy/Dex OPHTH.OIN* 3.5 GM ONE (10:54)
[2019-03-13] MEDS ORDERED: Phenylephrine OPHTH SOL 2.5%* 2 ML ONE (10:54)
[2019-03-13] MEDS ORDERED: Lidocaine 1% MPF ** 5 ML VIAL ONE (10:54)
[2019-03-13] MEDS ORDERED: Tetracaine 0.5% OPTH.SOL 4 ML* 1 DROP BTL ONE (10:54)
[2019-03-13] MEDS ORDERED: Midazolam* 1 MG/ML 2 ML VIAL (2 MG) ONE ×2 (11:19→12:11)
[2019-03-13 13:14] VITALS: BP 125/69
--- NOTE | 2019-03-13 21:43 | OP ---
DATE OF OPERATION: 03/13/19 - [facility] DATE OF : 63 SURGEON: Waylon Cruz MD ANESTHESIA: Monitored anesthesia care. PREOPERATIVE DIAGNOSIS: Cataract, right eye. POSTOPERATIVE DIAGNOSIS: Cataract, right eye. OPERATIVE PROCEDURE: Extracapsular cataract extraction of the right eye with intraocular lens implant. IMPLANT: SN60WF 22.0 diopter lens to the right eye. COMPLICATIONS: None. DESCRIPTION OF PROCEDURE: The patient was given phenylephrine 2.5% and cyclopentolate 1% eye drops to the operative eye in the preoperative area. The patient was taken to the operating room where a time-out was taken to identify the correct patient, site, and side of surgery. The patient's right eye was prepped and draped in the usual sterile fashion with 5% Betadine. A second time -out was taken to verify the correct patient, side, and site of surgery and correct lens implant. A lid speculum was placed to the right eye. A 1 mm paracentesis blade was used to make a clear corneal incision in the superotemporal position. Preservative-free 1% lidocaine was injected into the anterior chamber. DisCoVisc was then injected into the anterior chamber. A 2.75 mm keratome blade was used to make a triplanar incision at the inferotemporal position. A cystotome initiated a capsulorrhexis. The rhexis started to extend peripherally sub-incisionally; therefore, MST forceps were used to cut a fresh tear and complete a curvilinear capsulorrhexis for the remainder. The rhexis did not appear to extend peripherally or posteriorly. The phacoemulsification handpiece was used with a divide-and- conquer technique to remove the nucleus. The I/A handpiece then removed the residual cortical lens material. DisCoVisc was injected to inflate the capsular bag. The bag was still intact posteriorly; therefore, the planned SN60WF 22.0 diopter lens was injected into the capsular bag and haptics rotated at 90 degrees from the peripheral rhexis extension. The residual viscoelastic was removed from the eye with the I/A handpiece. The corneal incisions were hydrated and no leaks occurred at physiologic pressure around 20 mmHg per palpation. The lid speculum was removed and drapes were removed. Maxitrol ointment was placed to the surface of the operative eye. An adhesive patch and shield was then placed on the operative eye. The patient was taken to the postoperative area in stable condition. [id number]/[facility] #: [id number] ELISE
== END 2019-03-13 13:03 | disposition home or self-care (01) ==
LOC: OREAST 10:05
PROVIDERS: ATTEND Student in an Organized Health Care Education/Training Program
DX: H25.811 Combined forms of age-related cataract, right eye (principal); H25.12 Age-related nuclear cataract, left eye; G43.909 Migraine, unspecified, not intractable, without status migrainosus; B18.2 Chronic viral hepatitis C; M19.019 Primary osteoarthritis, unspecified shoulder; J44.9 Chronic obstructive pulmonary disease, unspecified; F17.210 Nicotine dependence, cigarettes, uncomplicated; I81 Portal vein thrombosis
CPT/HCPCS: A9270-GY; J2250; V2632